=== PATIENT | female | born 1985 | race Caucasian/White ===

== ENCOUNTER → 2018-07-19 | Outpatient (REF) | payer OTHER, BC ==
[~2018-07-19] MED LIST: ACET30TAB PO; COLA100C5 PO; DIBU1OIN TOP; DOCU10CA PO; IBUP60TA PO; MAPA500T2 PO; MOM30SS PO; MOTR200T44 PO; PRENCAP9 PO; ZANTAC PO
== END ==
LOC: M LAB REF 09:25
PROVIDERS: ATTEND Physician Assistant Medical
DX: J02.9 Acute pharyngitis, unspecified (principal)

== ENCOUNTER → 2021-09-21 | Outpatient (CLI) | payer OTHER ==
[~2021-09-21] MED LIST changes: +ACET-716 PO; -ACET30TAB PO; +IBUP600T42 PO; -IBUP60TA PO
[2021-09-21 08:00] LABS: BASO % 0.5 % (0.0-1.0); EOS # 0.1 10^3/uL (0.0-0.5); EOS % 0.9 % (0.0-3.0); HEMATOCRIT 39.2 % (36.0-47.0); HEMOGLOBIN 12.5 g/dl (12.0-15.5); LYMPH # 1.7 10^3/uL (1.5-5.0); LYMPH % 26.1 % (24.0-44.0); MEAN CORPUSCULAR HEMOGLOBIN 29.2 pg (27.0-33.0); MEAN CORPUSCULAR HGB CONC 31.9 g/dl (32.0-36.5); MEAN CORPUSCULAR VOLUME 91.6 fl (80.0-96.0); MONO # 0.5 10^3/uL (0.0-0.8); MONO % 8.1 % (2.0-8.0); NEUTROPHILS # 4.1 10^3/uL (1.5-8.5); NEUTROPHILS % 64.1 % (36.0-66.0); PLATELET COUNT, AUTOMATED 200 10^3/uL (150-450); RED BLOOD COUNT 4.28 10^6/uL (4.00-5.40); WHITE BLOOD COUNT 6.4 10^3/uL (4.0-10.0)
[2021-09-21 08:29] LABS: ALBUMIN 3.7 GM/DL (3.2-5.2); ALT/SGPT 19 U/L (12-78); BILIRUBIN,TOTAL 0.4 MG/DL (0.2-1.0); BLOOD UREA NITROGEN 15 MG/DL (7-18); CALCIUM LEVEL 8.9 MG/DL (8.5-10.1); CARBON DIOXIDE LEVEL 29 MEQ/L (21-32); CHLORIDE LEVEL 108 MEQ/L (98-107); CHOLESTEROL LEVEL 161 MG/DL (<200); CHOLESTEROL RISK RATIO 2.175 (<5); FREE T4 0.93 NG/DL (0.76-1.46); GLOMERULAR FILTRATION RATE > 60.0 (>60); GLUCOSE, FASTING 92 MG/DL (70-100); HDL CHOLESTEROL 74 MG/DL (>40); LDL CHOLESTEROL 77 MG/DL (<100); NON-HDL-C 87 MG/DL; POTASSIUM SERUM 4.4 MEQ/L (3.5-5.1); SODIUM LEVEL 140 MEQ/L (136-145); TOTAL PROTEIN 7.1 GM/DL (6.4-8.2); TRIGLYCERIDES LEVEL 48 MG/DL (<150)
== END ==
LOC: M LAB 06:52
PROVIDERS: ATTEND Nurse Practitioner Adult Health
DX: Z00.00 Encounter for general adult medical examination without abnormal findings (principal)

== ENCOUNTER 2022-10-05 05:03 | Emergency (ER) | payer OTHER ==
[~2022-10-05] VITALS: Ht 162.6 cm; Wt 98.6 kg
[2022-10-05] MEDS ORDERED: BUPR15TASR PO (05:16)
[2022-10-05] MEDS ORDERED: MELO15TA28 PO (05:16)
[2022-10-05] MEDS ORDERED: BACL10TA2 PO (05:16)
[2022-10-05] MEDS ORDERED: KETOROLAC 30 MG/ML 1ML VIAL IV ONE (07:00)
[2022-10-05 07:08] LABS: BASO # 0.1 10^3/uL (0.0-0.2); BASO % 0.6 % (0.0-1.0); EOS # 0.1 10^3/uL (0.0-0.5); EOS % 0.9 % (0.0-3.0); HEMATOCRIT 40.2 % (36.0-47.0); HEMOGLOBIN 12.7 g/dl (12.0-15.5); LYMPH # 2.3 10^3/uL (1.5-5.0); LYMPH % 25.8 % (24.0-44.0); MEAN CORPUSCULAR HGB CONC 31.6 g/dl (32.0-36.5); MEAN CORPUSCULAR VOLUME 88.7 fl (80.0-96.0); MONO # 0.4 10^3/uL (0.0-0.8); NEUTROPHILS # 5.9 10^3/uL (1.5-8.5); NEUTROPHILS % 67.2 % (36.0-66.0); PLATELET COUNT, AUTOMATED 242 10^3/uL (150-450); RED BLOOD COUNT 4.53 10^6/uL (4.00-5.40); WHITE BLOOD COUNT 8.8 10^3/uL (4.0-10.0)
[2022-10-05 07:27] LABS: ALBUMIN 3.7 G/DL (3.2-5.2); ALKALINE PHOSPHATASE 62 U/L (46-116); ALT/SGPT 14 U/L (7.0-40); AST/SGOT 40 U/L (<34); BILIRUBIN,DIRECT < 0.1 MG/DL (<0.4); BILIRUBIN,TOTAL 0.3 MG/DL (0.3-1.2); BLOOD UREA NITROGEN 18 MG/DL (9-23); CALCIUM LEVEL 8.5 MG/DL (8.5-10.1); CARBON DIOXIDE LEVEL 26 MMOL/L (20-31); CHLORIDE LEVEL 105 MMOL/L (98-107); GLOMERULAR FILTRATION RATE > 60.0 (>60); GLUCOSE, FASTING 139 MG/DL (60-100); LIPASE 33 U/L (12-53); POTASSIUM SERUM 5.4 MMOL/L (3.5-5.1); SODIUM LEVEL 138 MMOL/L (136-145); TOTAL PROTEIN 7.2 G/DL (5.7-8.2)
[2022-10-05 07:32] LABS: HCG, SERUM QUALITATIVE NEGATIVE (NEGATIVE)
[2022-10-05 07:55] LABS: CK-MB VALUE MASS < 1.0 NG/ML (<3.6)
[2022-10-05] MEDS ORDERED: MORPHINE 4 MG/ML 1ML VIAL IV ONE (07:55)
[2022-10-05 07:57] LABS: CPK CREATINE PHOSPHOKINASE 83 U/L (34-145)
[2022-10-05 08:34] VITALS: BP 117/73
[2022-10-05] MEDS ORDERED: LIDOCAINE 5% (LIDODERM) PATCH TD ONE (09:25)
[2022-10-05] MEDS ORDERED: HYDR-3713 PO (09:26)
[2022-10-05] MEDS ORDERED: NAPR-837 PO (09:26)
== END 2022-10-05 09:35 | disposition home or self-care (01) ==
LOC: M ED 05:03
DX: S29.011A Strain of muscle and tendon of front wall of thorax, initial encounter (principal); R07.82 Intercostal pain; X58.XXXA Exposure to other specified factors, initial encounter; Y92.89 Other specified places as the place of occurrence of the external cause
CPT/HCPCS: 71046; 76705; 80048; 80076; 81001; 82550; 82553; 83690; 84484; 84703; 85025; 85379; 87086; 93005; 96374; 96375; 99284; J1885

== ENCOUNTER → 2022-10-07 | Outpatient (CLI) | payer OTHER ==
[~2022-10-07] MED LIST changes: +BACL10TA2 PO; +BUPR15TASR PO; +HYDR-3713 PO; +MELO15TA28 PO; +NAPR-837 PO
[2022-10-07 15:51] LABS: BASO % 0.3 % (0.0-1.0); EOS # 0.1 10^3/uL (0.0-0.5); EOS % 1.2 % (0.0-3.0); HEMATOCRIT 39.7 % (36.0-47.0); HEMOGLOBIN 12.6 g/dl (12.0-15.5); LYMPH % 22.5 % (24.0-44.0); MEAN CORPUSCULAR HEMOGLOBIN 28.6 pg (27.0-33.0); MEAN CORPUSCULAR HGB CONC 31.7 g/dl (32.0-36.5); MONO # 0.5 10^3/uL (0.0-0.8); MONO % 5.7 % (2.0-8.0); NEUTROPHILS # 6.2 10^3/uL (1.5-8.5); NEUTROPHILS % 70.1 % (36.0-66.0); PLATELET COUNT, AUTOMATED 243 10^3/uL (150-450); RED BLOOD COUNT 4.41 10^6/uL (4.00-5.40); WHITE BLOOD COUNT 8.8 10^3/uL (4.0-10.0)
[2022-10-07 16:26] LABS: C REACTIVE PROTEIN QUANTITATIV < 0.40 MG/DL (<1.0)
[2022-10-07 16:41] LABS: HEPATITIS B SURFACE ANTIGEN NEGATIVE (NEGATIVE)
[2022-10-07 16:48] LABS: ERYTHROCYTE SEDIMENTATION RATE 31 mm/hr (0-20)
[2022-10-07 16:57] LABS: HEPATITIS B CORE ANTIBODY IGM NEGATIVE (NEGATIVE)
[2022-10-07 17:00] LABS: ALKALINE PHOSPHATASE 68 U/L (46-116); ALT/SGPT < 9 U/L (7.0-40); AST/SGOT 13 U/L (<34); BILIRUBIN,TOTAL 0.2 MG/DL (0.3-1.2); BLOOD UREA NITROGEN 19 MG/DL (9-23); CALCIUM LEVEL 8.6 MG/DL (8.5-10.1); CARBON DIOXIDE LEVEL 30 MMOL/L (20-31); CHLORIDE LEVEL 104 MMOL/L (98-107); GLOMERULAR FILTRATION RATE > 60.0 (>60); GLUCOSE, FASTING 107 MG/DL (60-100); POTASSIUM SERUM 4.2 MMOL/L (3.5-5.1); SODIUM LEVEL 138 MMOL/L (136-145); TOTAL PROTEIN 6.8 G/DL (5.7-8.2)
== END ==
LOC: M LAB 13:53
PROVIDERS: ATTEND Nurse Practitioner Adult Health
DX: R10.811 Right upper quadrant abdominal tenderness (principal)

== ENCOUNTER → 2023-07-21 | Outpatient (CLI) | payer OTHER | LOC: M PLAIMG 10:31 | PROVIDERS: ATTEND Nurse Practitioner Adult Health | DX: M54.50 Low back pain, unspecified (principal) ==

== ENCOUNTER → 2023-09-10 | Outpatient (REF) | payer OTHER ==
[2023-09-10 14:00] LABS: BASO # 0.1 10^3/uL (0.0-0.2); BASO % 0.6 % (0.0-1.0); EOS # 0.1 10^3/uL (0.0-0.5); EOS % 1.5 % (0.0-3.0); HEMATOCRIT 40.7 % (36.0-47.0); HEMOGLOBIN 12.9 g/dl (12.0-15.5); LYMPH # 2.5 10^3/uL (1.5-5.0); LYMPH % 28.5 % (24.0-44.0); MEAN CORPUSCULAR HEMOGLOBIN 29.3 pg (27.0-33.0); MEAN CORPUSCULAR HGB CONC 31.7 g/dl (32.0-36.5); MEAN CORPUSCULAR VOLUME 92.3 fl (80.0-96.0); MONO # 0.5 10^3/uL (0.0-0.8); MONO % 5.9 % (2.0-8.0); NEUTROPHILS # 5.5 10^3/uL (1.5-8.5); NEUTROPHILS % 63.3 % (36.0-66.0); PLATELET COUNT, AUTOMATED 220 10^3/uL (150-450); RED BLOOD COUNT 4.41 10^6/uL (4.00-5.40); WHITE BLOOD COUNT 8.8 10^3/uL (4.0-10.0)
[2023-09-10 14:11] LABS: HEMOGLOBIN A1c 5.3 % (4.0-6.0)
[2023-09-10 14:27] LABS: CORTISOL AM 7.6 UG/DL (4.3-22.4)
[2023-09-10 14:30] LABS: FREE T4 1.11 NG/DL (0.89-1.76)
[2023-09-10 14:32] LABS: PROGESTERONE 6.14 NG/ML
[2023-09-10 14:33] LABS: FOLATE > 24.0 NG/ML (>5.4); VITAMIN B12 LEVEL 476 PG/ML (211-911)
[2023-09-10 14:34] LABS: ESTRADIOL 97.3 PG/ML; THYROID STIMULATING HORMONE 2.852 uIU/ML (0.55-4.78)
[2023-09-10 14:37] LABS: ALKALINE PHOSPHATASE 65 U/L (46-116); ALT/SGPT 11 U/L (7.0-40); AST/SGOT 9 U/L (<34); BILIRUBIN,TOTAL 0.5 MG/DL (0.3-1.2); BLOOD UREA NITROGEN 15 MG/DL (9-23); CALCIUM LEVEL 8.9 MG/DL (8.5-10.1); CARBON DIOXIDE LEVEL 26 MMOL/L (20-31); CHLORIDE LEVEL 108 MMOL/L (98-107); CHOLESTEROL LEVEL 144 MG/DL (<200); CHOLESTEROL RISK RATIO 2.53 (<5); CREATININE FOR GFR 0.83 MG/DL (0.55-1.30); GLOMERULAR FILTRATION RATE > 60.0 (>60); GLUCOSE, FASTING 91 MG/DL (60-100); HDL CHOLESTEROL 56.7 MG/DL (>40); LDL CHOLESTEROL 72.3 MG/DL (<100); NON-HDL-C 87.3 MG/DL; POTASSIUM SERUM 4.7 MMOL/L (3.5-5.1); SODIUM LEVEL 139 MMOL/L (136-145); TOTAL PROTEIN 7.3 G/DL (5.7-8.2); TRIGLYCERIDES LEVEL 75 MG/DL (<150)
[2023-09-10 14:44] LABS: FREE T3 3.3 PG/ML (2.3-4.2)
== END ==
LOC: M LABDRWAD 11:54
PROVIDERS: ATTEND Internal Medicine
DX: D64.9 Anemia, unspecified (principal); E78.2 Mixed hyperlipidemia; E03.9 Hypothyroidism, unspecified; E88.9 Metabolic disorder, unspecified; R73.03 Prediabetes; E55.9 Vitamin D deficiency, unspecified; D51.9 Vitamin B12 deficiency anemia, unspecified